=== PATIENT | female | born 1965 | race Caucasian/White ===

== ENCOUNTER → 2016-09-13 | Outpatient (CLI) | payer OTHER ==
--- NOTE | 2016-09-12 15:08 | DX ---
Chest, PA and Lateral History: Persistent cough x3 months, R05 Comparison: None Findings: Lungs are clear, without infiltrate or consolidation. Mild retrocardiac and perihilar bronc hial wall thickening is present. Lung volumes are slightly prominent. Asymmetrical 2cm density in the right upper lobe may be related to the costochondral junction or represent an underlying pulmonary p arenchymal abnormality. Heart size is normal. There is no adenopathy or pleural effusion. Bones are u nremarkable for age. Impression: 1. Suspect airways disease. 2. Right upper lung asymmetry. If there are any old outside chest x-rays, we would be happy to review them to assess for interval change. If not, recommend noncontrast chest CT for further evaluation. A message was left for Dr. Lindsay Wadsworth at 3 p.m.
--- NOTE | 2016-09-13 21:20 | MA ---
Digital Screening Mammogram Bilateral 09/13/2016 12:47 Indication: Screening Comparison: July 2015, April 2014, and April 2013. Technique: Standard digital cephalocaudal and mediolateral oblique projections are obtained. This e xamination is processed by the [employer] computer-aided detection system. Findings: Standard views of both breasts demonstrate scattered fibroglandular tissue, breast B (25-50 %). Benign-appearing nodular densities are seen bilaterally, stable in appearance. Benign-appearing c alcifications are seen bilaterally, stable in appearance. No suspicious interval change in either waqar ast. IMPRESSION: Benign. BI-RADS 2. Recommendation: Screening mammogram in one year. [facility] will send a result letter to the patient. Negative mammography should not preclude additional workup of a clinically suspicious finding. The patient's information is entered into a reminder system with a target due date for her next mammo gram.
== END ==
LOC: FIMAGING 09-12 11:15
PROVIDERS: ATTEND Internal Medicine
DX: Z12.31 Encounter for screening mammogram for malignant neoplasm of breast (principal); R05 Cough
CPT/HCPCS: G0202

== ENCOUNTER → 2016-09-19 | Outpatient (CLI) | payer OTHER ==
--- NOTE | 2016-09-19 13:30 | CT ---
Unenhanced CT Scan of the Chest Clinical History: 50-year-old female who has had a persistent cough for three months, with suspected airways' disease and was noted to have right upper chest asymmetry on recent radiography. The patient believes that she may have aspirated some food approximately six months ago. She smoked for six year s, although quit 22 years ago. ICD 10 Diagnostic Codes: R05 and R91.8. Technique: A multidetector unenhanced helical CT scan was obtained from the base of the neck inferior ly to the upper abdomen, with images reformatted at 2.50 and 1.25 mm increments, and reviewed at a [facility] of window and level settings. Parasagittal and paracoronal reconstructed images are reviewed on the workstation. The DFOV is 38 cm. A dose reduction protocol was used. Comparison Study: Chest radiography, dated September 12, 2016, at 11:36 a.m. Findings: The asymmetry seen on recent chest radiograph can be attributed to osseous prominence assoc iated with the right first costochondral junction. There is no evidence of an apical pleural or paren chymal-based mass, nor is there an osseous lytic or blastic lesion. There may be a very mild degree o f peribronchial wall thickening in this patient with a chronic cough, however, there is no focal alve olar consolidation, nodularity, ground-glass opacity, atelectasis, pleural effusion, peripheral inter stitial edema, pneumothorax, pneumomediastinum, or subcutaneous emphysema. There is a small amount of intraluminal air within the distal thoracic esophagus, which could be secondary to air swallowing or some air reflux. Given the patient's chronic cough history, would an esophagram be of benefit to exc lude gastroesophageal reflux? The thyroid gland appears normal. There is no axillary or intrathoracic adenopathy. The thoracic aortic contour, cardiac chambers, and the pericardium appear relatively nor mal (there is some minimal pericardial thickening at the right anterolateral base). The osseous struc tures are age-appropriate. There is no aggressive lesion. The subcutaneous tissues are normal. The vi sualized portions of the upper abdomen are within normal range. Impression: 1. The recent chest radiographic finding can be attributed to osseous hypertrophy at the right first costochondral junction. There is no pleural or parenchymal abnormality. 2. Given the patient's history of a chronic cough, would an esophagram be of benefit to exclude gastr oesophageal reflux?
== END ==
LOC: CIMAGING 11:13
PROVIDERS: ATTEND Internal Medicine
DX: R05 Cough (principal); R91.8 Other nonspecific abnormal finding of lung field
CPT/HCPCS: 71250-PO

== ENCOUNTER → 2017-09-14 | Outpatient (CLI) | payer OTHER | LOC: FIMAGING 11:38 | PROVIDERS: ATTEND Internal Medicine | DX: Z12.31 Encounter for screening mammogram for malignant neoplasm of breast (principal); Z80.3 Family history of malignant neoplasm of breast ==

== ENCOUNTER → 2018-01-29 | Outpatient (CLI) | payer OTHER | LOC: FIMAGING 08:19 | PROVIDERS: ATTEND Internal Medicine | DX: N93.8 Other specified abnormal uterine and vaginal bleeding (principal); N83.201 Unspecified ovarian cyst, right side ==

== ENCOUNTER → 2018-10-19 | Outpatient (CLI) | payer OTHER | LOC: FIMAGING 15:11 | PROVIDERS: ATTEND Internal Medicine | DX: Z12.31 Encounter for screening mammogram for malignant neoplasm of breast (principal); Z80.3 Family history of malignant neoplasm of breast ==